=== PATIENT | female | born 1945 | race Caucasian/White ===

== ENCOUNTER → 2016-04-08 | Day surgery (SDC) | payer OTHER ==
--- NOTE | 2016-04-09 10:20 | PATH ---
Surgical Pathology Report Patient Name: FILEMON PALUMBO [facility]. Rec. #: [id number] /Age/Gender: 1945 (Age: 70) / F Account: [id number] Location: [facility] Taken: 04/08/2016 Received: 04/08/2016 Reported: 04/09/2016 Physicians: Hawa Davis M.D. Specimen(s) Received LEFT BREAST SPECIMEN WITH MASS Clinical History Nonpalpable lesion, suspicious Final Diagnosis LEFT BREAST, STEREOTACTIC NEEDLE CORE BIOPSY: BENIGN BREAST TISSUE WITH FIBROCYSTIC CHANGES INCLUDING USUAL DUCTAL HYPERPLASIA (UDH), COLUMNAR CELL CHANGE, STROMAL FIBROSIS, AND DUCTAL DILATATION. RARE MICROCALCIFICATIONS ARE IDENTIFIED. Electronically Signed Tomer Chao M.D. Gross Description Received in formalin, labeled "left breast with mass," are 9 graves-yellow, cylindrical portions of fibroadipose tissue ranging from 0.6-2.0 cm. in length and averaging 0.3 cm. in diameter. The specimen is submitted in toto in 2 cassettes. Time to formalin fixation: 6 minutes Total formalin fixation time: Approximately 8 hours. /04/08/201604/08/2016
== END | disposition home or self-care (01) ==
LOC: FMAMMOTONE 09:06
PROVIDERS: ATTEND Surgery
PROC: 0HBU3ZX Excision of Left Breast, Percutaneous Approach, Diagnostic (ICD-10-PCS; principal; 2016-04-08)
DX: N63 Unspecified lump in breast (principal); N60.82 Other benign mammary dysplasias of left breast; N60.32 Fibrosclerosis of left breast; N64.89 Other specified disorders of breast
CPT/HCPCS: 19081; 88305-TC; A4648